=== PATIENT | male | born 1995 | race Caucasian/White ===

== ENCOUNTER 2020-05-01 12:42 | Day surgery (SDC) | payer OTHER ==
[2020-04-28 11:12] VITALS: BMI 22.0
[2020-05-01] MEDS ORDERED: PROPOFOL 20 ML ONE ×5 (15:09)
[2020-05-01 15:50] VITALS: BP 110/60; PULSE 70; TEMP 97.8
== END 2020-05-01 15:50 | disposition home or self-care (01) ==
LOC: FASU-ENDO 12:42
PROVIDERS: ATTEND Internal Medicine Gastroenterology
PROC: 0DB78ZX Excision of Stomach, Pylorus, Via Natural or Artificial Opening Endoscopic, Diagnostic (ICD-10-PCS; 2020-05-01)
PROC: 0DB48ZX Excision of Esophagogastric Junction, Via Natural or Artificial Opening Endoscopic, Diagnostic (ICD-10-PCS; 2020-05-01)
PROC: 0DB98ZX Excision of Duodenum, Via Natural or Artificial Opening Endoscopic, Diagnostic (ICD-10-PCS; principal; 2020-05-01 15:05)
DX: K26.9 Duodenal ulcer, unspecified as acute or chronic, without hemorrhage or perforation (principal); K29.70 Gastritis, unspecified, without bleeding; K22.8 Other specified diseases of esophagus; R10.13 Epigastric pain
CPT/HCPCS: 88305-TC; 88342-TC